=== PATIENT | female | born 1925 | race Caucasian/White ===

== ENCOUNTER 2016-03-12 11:27 | Outpatient (CLI) | payer OTHER ==
--- NOTE | 2016-03-12 13:42 | DIAGNOSTIC IMAGING REPORT ---
PROCEDURE: MG BILATERAL SCREENING W/CAD INDICATION: Screening. Personal history of right breast carcinoma (lumpectomy and radiation). Family history of breast carcinoma (mother, sister). TECHNIQUE: Bilateral CC and MLO digital views. COMPARISON: Compared to 03/06/2015, 03/06/2014, and 02/26/2014. FINDINGS: Computer-aided detection applied. Moderately dense with a few dystrophic calcifications. No change. There is stable postoperative changes and parenchymal scarring in the upper outer right breast. IMPRESSION: 1. Stable postoperative and postradiation changes in the upper outer right breast. 2. Otherwise negative mammogram. RESULT CODE: 2- Benign finding(s). A. A negative report should not delay biopsy if a dominant or clinically suspicious mass is present. 10-15% of cancers are not identified by x-ray. B. A negative report may reinforce clinical impression. C. Adenosis and dense breasts may obscure an underlying neoplasm. D. False positive reports average 6-10%. E.. A yearly screening mammogram is recommended. A reminder letter will be scheduled.
== END 2016-03-12 23:00 ==
LOC: MAM SRH 11:27
DX: Z12.31 Encounter for screening mammogram for malignant neoplasm of breast (principal); Z80.3 Family history of malignant neoplasm of breast; Z85.3 Personal history of malignant neoplasm of breast